=== PATIENT | female | born 1995 | race Caucasian/White ===

== ENCOUNTER 2016-11-25 04:10 | Emergency (ER) | payer SELFPAY ==
[~2016-11-25] VITALS: Ht 160 cm; Wt 117.0 kg
[~2016-11-25 04:10] MED LIST: DCS100C PO; HYDR-3454 PO; HYOS0.1217 PO; KETO10TA77 PO; TRAM50TA2 PO
--- NOTE | 2016-11-25 04:29 | ED EENT ---
History of Present Illness General Chief Complaint: Ear Problems Stated Complaint: LEFT EAR PAIN Nursing Triage Note: c/o L ear starting 1 day prior after swimming Source: patient, family (mom) Exam Limitations: no limitations History of Present Illness Time seen by provider: 04:22 Initial Comments Patient presents to ER by private conveyance with her mother with chief complaint of left ear pain after sitting in the pit yesterday. The pain started yesterday and she put some swimmer's ear drops in but this only caused more agitation. She has had no discharge, fever, nausea, malaise, fatigue, lethargy, rash. She has no history of external ear infections or otitis media. No other sick contacts. Allergies and Home Medications Allergies Coded Allergies: No Known Drug Allergies (Unverified , 01/12/12) Home Medications Docusate Sodium 100 Mg Cap, 100 MG PO BID, #60 Prescribed by: HUDSON HARRELL on 05/21/14 0916 Hydrocodone Bit/Acetaminophen 1 Each Tablet, 1 EACH PO Q4H PRN for PAIN, #30 Prescribed by: HUDSON HARRELL on 05/21/14 0916 Neomycin/Polymyxin B Sulf/Hc 10 Ml Drops.susp, 2 DROP OT QID for 10 Days, #1 Ref 0 Prescribed by: MACIE DUMONT on 11/25/16 0434 Review of Systems Constitutional: No chills, No diaphoresis, No fever, No malaise Eyes: Denies Blindness, Denies Blurred Vision Ears: See HPI, Denies Dizziness, Pain, Denies Tinnitus, Denies Bloody Discharge , Denies Clear Discharge, Denies Purulent Discharge Nose: denies clots, denies congestion Mouth: denies pain, denies swelling Throat: denies neck stiffness, denies hoarse Respiratory: No cough, No short of breath Gastrointestinal: No nausea, No vomiting Past Rlifoju-Hxfxbp-Inapob Hx Patient Social History Alcohol Use: Occasionally Uses Recreational Drug Use: No Smoking Status: Never a Smoker Recent Foreign Travel: No Contact w/Someone Who Travel: No Recent Infectious Disease Expo: No Immunizations Up To Date Tetanus Booster (TDap): Unknown Surgeries HX Surgeries: No Respiratory Hx Respiratory Disorders: No Cardiovascular Hx Cardiac Disorders: No Neurological Hx Neurological Disorders: No Reproductive System Hx Reproductive Disorders: No Sexually Transmitted Disease: No HIV/AIDS: No Genitourinary Hx Genitourinary Disorders: No Gastrointestinal Hx Gastrointestinal Disorders: No Musculoskeletal Hx Musculoskeletal Disorders: No Endocrine Hx Endocrine Disorders: No HEENT HX ENT Disorders: No Cancer Hx Cancer: No Psychosocial Hx Psychiatric Problems: No Integumentary HX Skin/Integumentary Disorder: No Blood Transfusions Hx Blood Disorders: No Adverse Reaction to a Blood Tr: No Physical Exam Vital Signs Vital Sign - Last 12Hours 11/25/16 04:23 Temp 98.2 Pulse 94 Resp 18 B/P (MAP) 139/96 Pulse Ox 98 General Appearance: WD/WN, no apparent distress Eyes: bilateral eye EOMI, bilateral eye PERRL, bilateral eye normal inspection Ears: right ear canal normal, left ear swelling, left ear tenderness, bilateral ear TM normal, bilateral ear auricle normal Nose: normal inspection, No discharge Mouth/Throat: normal mouth inspection, pharynx normal Neck: non-tender, full range of motion, supple, normal inspection Cardiovascular: normal peripheral pulses, regular rate, rhythm Respiratory: lungs clear, normal breath sounds Neurologic/Psychiatric: alert, oriented x 3 Progress/Results/Core Measures Results/Orders Vital Signs/I&O Vital Sign - Last 12Hours 11/25/16 04:23 Temp 98.2 Pulse 94 Resp 18 B/P (MAP) 139/96 Pulse Ox 98 Blood Pressure Mean: 110 Departure Impression Impression: Primary Impression: Otitis externa Qualified Codes: H60.332 - Swimmer's ear, left ear Disposition: 01 HOME, SELF-CARE Condition: Stable Departure-Patient Inst. Decision time for Depature: 04:31 Referrals: [facility] (PCP) Primary Care Physician CROW WEBBER (Family) Primary Care Physician Patient Instructions: Outer Ear Infection (DC) Add. Discharge Instructions: Apply 2 drops in your left ear 4 times daily for 10 days. It's okay to stop after your symptoms are resolved at least 2-3 days later. If you're having pain you can apply an ice pack directly over the ear followed by a warm pack. You may also use Tylenol 1000 mg every 8 hours or ibuprofen 800 mg every 8 hours. If he started having fevers, nausea and vomiting, chills or worsening symptoms he should return to the ER or to your primary care physician. He should expect some improvement in the next 2-3 days and if not gone by 7-10 days he should follow up with your primary care physician. All discharge instructions reviewed with patient and/or family. Voiced understanding. Scripts Neomycin/Polymyxin B Sulf/Hc (Sxxnzkan-Sjwznufby-Fj Ear Susp) 10 Ml Drops.susp 2 DROP OT QID for 10 Days, #1 EACH 0 Refills Prov: MACIE DUMONT 11/25/16 Copy Copies To 1: SHADI CHILDRESS DO MACIE DUMONT Nov 25, 2016 04:29
[2016-11-25] MEDS ORDERED: NEOM10DR42 OT (04:34)
[2016-11-25 04:40] VITALS: BP 139/96
== END 2016-11-25 04:39 | disposition home or self-care (01) ==
LOC: EDUNIT# 04:10 → ER 04:14
DX: H60.92 Unspecified otitis externa, left ear (principal)
CPT/HCPCS: 99282

== ENCOUNTER 2018-09-15 19:33 | Emergency (ER) | payer SELFPAY ==
[~2018-09-15] VITALS: Ht 160 cm; Wt 117.9 kg
[~2018-09-15 19:33] MED LIST changes: +NEOM10DR42 OT
--- OUTSIDE RECORDS SUMMARY | 2018-09-15 19:40 | XMS REPORT ---
Author Author Migration, Doctor Organization [facility] Address Unknown Phone Unavailable Care Team Providers Care Project Safety Manager Name Role Phone Migration, Doctor Unavailable Unavailable PROBLEMS Type Condition ICD9-CM Code MGQ00-QE Code Onset Dates Condition Status SNOMED Code Problem Mixed hyperlipidemia E78.2 Active 561163836 Problem Seasonal allergic rhinitis, unspecified trigger J30.2 Active 948012341 ALLERGIES No Information ENCOUNTERS Encounter Location Date Diagnosis [facility] [address] [address] Mar, Acute nasopharyngitis J00 ; BMI 50.0-59.9, adult Z68.43 and Sore throat J02.[address] [address] Jul, Mixed hyperlipidemia E78.[address] [address] Jul, Establishing care with new doctor, encounter for Z76.89 ; Seasonal allergic rhinitis, unspecified trigger J30.2 and BMI 50.0-59.9, adult Z68.43 [facility] [address] [address] Jun, Acute suppurative otitis media of right ear without spontaneous rupture of tympanic membrane, recurrence not specified H66.001 ; Acute nasopharyngitis J00 and BMI 50.0-59.9, adult Z68.43 [facility] [address] [address] Jan, Acute nonintractable headache, unspecified headache type R51 [facility] [address] [address] Apr, Viral gastroenteritis A08.4 [place] [id number] [address] 16 Jun, 2015 [facility] [address] [place] [address] Jun, Abnormal finding on urinalysis R82.90 and Obesity E66.9 [facility] [id number] [address] Dec, Allergic rhinitis 477.9 and Encounter for weight loss counseling V65.3 [facility] [id number] [address] Jul, [facility] [id number] [place] [address] Jul, [facility] [address] [place] [address] Apr, [facility] [id number] [place] [address] Apr, [facility] [address] [place] [address] Apr, [facility] [address] [place] [address] Apr, [facility] [address] [address] Mar, [facility] [address] [address] Mar, IMMUNIZATIONS No Known Immunizations SOCIAL HISTORY Never Assessed REASON FOR VISIT [facility] [place] PLAN OF CARE VITAL SIGNS MEDICATIONS Medication Instructions Dosage Frequency Start Date End Date Duration Status tramadol 50 mg take 1-2 tablet by Oral route every 6 hours as needed PRN MUST LAST 30 DAYS Apr, Active Bentyl 20 mg 1 tablet by Oral route every 6 hours PRN Mar, Active RESULTS No Results PROCEDURES No Known procedures INSTRUCTIONS MEDICATIONS ADMINISTERED No Known Medications MEDICAL (GENERAL) HISTORY Type Description Date Medical History Seasonal Allergys Surgical History cholecystectomy Hospitalization History Surgery(s) only
--- OUTSIDE RECORDS SUMMARY | 2018-09-15 19:40 | XMS REPORT ---
Author Author JOHN BURRIS Organization [facility] Address [address] [place] [address] Care Team Providers Care Mixer Whipped Topping Name Role Phone JOHN BURRIS Unavailable PROBLEMS Type Condition ICD9-CM Code REG61-PV Code Onset Dates Condition Status SNOMED Code Problem Seasonal allergic rhinitis, unspecified trigger J30.2 Active 459845335 Problem Mixed hyperlipidemia E78.2 Active [id number] ALLERGIES No Known Allergies ENCOUNTERS Encounter Location Date Diagnosis [facility] [id number] [place] [address] Mar, Acute nasopharyngitis J00 ; BMI 50.0-59.9, adult Z68.43 and Sore throat J02.9 [facility] [address] [address] Jul, Mixed hyperlipidemia E78.2 [facility] [id number] [place] [address] Jul, Establishing care with new doctor, encounter for Z76.89 ; Seasonal allergic rhinitis, unspecified trigger J30.2 and BMI 50.0-59.9, adult Z68.43 [facility] [id number] [place] [address] Jun, Acute suppurative otitis media of right ear without spontaneous rupture of tympanic membrane, recurrence not specified H66.001 ; Acute nasopharyngitis J00 and BMI 50.0-59.9, adult Z68.43 [facility] [id number] [place] [address] Jan, Acute nonintractable headache, unspecified headache type R51 [facility] [id number] [place] [address] Apr, Viral gastroenteritis A08.4 [facility] [address] [address] 16 Jun, 2015 [facility] [id number] [place] [address] 14 Jun, 2015 Abnormal finding on urinalysis R82.90 and Obesity E66.9 [facility] [id number] [place] [address] Dec, Allergic rhinitis 477.9 and Encounter for weight loss counseling V65.3 [place] [address] [address] Jul, [facility] [address] [address] Jul, [facility] [address] [address] Apr, [facility] [id number] [place] [address] Apr, [facility] [id number] [place] [address] Apr, [facility] [id number] [place] [address] Apr, [facility] [id number] [place] [address] Mar, [facility] [id number] [place] [address] Mar, IMMUNIZATIONS No Known Immunizations SOCIAL HISTORY Never Assessed REASON FOR VISIT Sore throat and ear pain started Tamanna Islas, REGGIE 03/09/18 PLAN OF CARE Activity Details Follow Up prn Reason: Pending Test STREP A (IN HOUSE) VITAL SIGNS Height 63 in 2018-03-21 Weight 303.4 lbs 2018-03-21 Temperature 97.2 degrees Fahrenheit 2018-03-21 Heart Rate 84 bpm 2018-03-21 Respiratory Rate 20 2018-03-21 BMI 53.74 kg/m2 2018-03-21 Blood pressure systolic 120 mmHg 2018-03-21 Blood pressure diastolic 70 mmHg 2018-03-21 MEDICATIONS Medication Instructions Dosage Frequency Start Date End Date Duration Status Ibuprofen 200 MG Orally Three times a day 1 tablet with food or milk as needed 8h Active Zyrtec Allergy 10 MG Orally Once a day 1 tablet as needed 24h Active RESULTS No Results PROCEDURES Procedure Date Ordered Result Body Site STREP A ASSAY W/OPTIC Mar 21, 2018 INSTRUCTIONS MEDICATIONS ADMINISTERED No Known Medications MEDICAL (GENERAL) HISTORY Type Description Date Medical History Seasonal Allergys Surgical History cholecystectomy Hospitalization History Surgery(s) only
--- OUTSIDE RECORDS SUMMARY | 2018-09-15 19:40 | XMS REPORT ---
Author Author Migration, Doctor Organization [facility] Address Unknown Phone Unavailable Care Team Providers Care Gyroscopic Instrument Tester Name Role Phone Migration, Doctor Unavailable Unavailable PROBLEMS Type Condition ICD9-CM Code TFI94-OP Code Onset Dates Condition Status SNOMED Code Problem Mixed hyperlipidemia E78.2 Active 659360859 Problem Seasonal allergic rhinitis, unspecified trigger J30.2 Active 466695409 ALLERGIES No Information ENCOUNTERS Encounter Location Date Diagnosis [facility] [address] [address] Mar, Acute nasopharyngitis J00 ; BMI 50.0-59.9, adult Z68.43 and Sore throat J02.[address] [address] Jul, Mixed hyperlipidemia E78.[address] [address] Jul, Establishing care with new doctor, encounter for Z76.89 ; Seasonal allergic rhinitis, unspecified trigger J30.2 and BMI 50.0-59.9, adult Z68.43 [facility] IN [address] [address] Jun, Acute suppurative otitis media of right ear without spontaneous rupture of tympanic membrane, recurrence not specified H66.001 ; Acute nasopharyngitis J00 and BMI 50.0-59.9, adult Z68.43 [facility] [address] [address] Jan, Acute nonintractable headache, unspecified headache type R51 [facility] [address] [address] Apr, Viral gastroenteritis A08.4 [place] [id number] [address] 16 Jun, 2015 [facility] [address] [place] [address] 14 Jun, 2015 Abnormal finding on urinalysis R82.90 and Obesity E66.9 [facility] [id number] [place] [address] 24 Dec, 2014 Allergic rhinitis 477.9 and Encounter for weight loss counseling V65.3 [facility] [id number] [place] [address] Jul, [facility] [id number] [place] [address] Jul, [facility] [id number] [place] [address] Apr, [facility] [id number] [place] [address] Apr, [facility] [address] [place] [address] Apr, [facility] [id number] [place] [address] Apr, [facility] [address] [address] Mar, [facility] [address] [place] [address] Mar, IMMUNIZATIONS No Known Immunizations SOCIAL HISTORY Never Assessed REASON FOR VISIT [facility] [place] CARE VITAL SIGNS MEDICATIONS No Known Medications RESULTS No Results PROCEDURES No Known procedures INSTRUCTIONS MEDICATIONS ADMINISTERED No Known Medications MEDICAL (GENERAL) HISTORY Type Description Date Medical History Seasonal Allergys Surgical History cholecystectomy Hospitalization History Surgery(s) only
--- OUTSIDE RECORDS SUMMARY | 2018-09-15 19:41 | XMS REPORT ---
Author Author MARGO PIERRE Organization [facility] Address [address] [place] [address] Care Team Providers Care Concrete Stone Finisher Name Role Phone MARGO PIERRE Unavailable PROBLEMS Type Condition ICD9-CM Code OOE83-OK Code Onset Dates Condition Status SNOMED Code Problem Seasonal allergic rhinitis, unspecified trigger J30.2 Active 320214168 Problem Mixed hyperlipidemia E78.2 Active 727028541 ALLERGIES No Known Allergies ENCOUNTERS Encounter Location Date Diagnosis [place] [address] [address] Jul, Mixed hyperlipidemia E78.2 [facility] [address] [address] Jul, Establishing care with new doctor, encounter for Z76.89 ; Seasonal allergic rhinitis, unspecified trigger J30.2 and BMI 50.0-59.9, adult Z68.43 [facility] [id number] [place] [address] Jun, Acute suppurative otitis media of right ear without spontaneous rupture of tympanic membrane, recurrence not specified H66.001 ; Acute nasopharyngitis J00 and BMI 50.0-59.9, adult Z68.43 [facility] [id number] [place] [address] Jan, Acute nonintractable headache, unspecified headache type R51 [facility] [place] [address] [address] Apr, Viral gastroenteritis A08.4 [facility] [id number] [place] [address] Jun, [facility] [id number] [address] 14 Jun, 2015 Abnormal finding on urinalysis R82.90 and Obesity E66.9 [facility] [id number] [place] [address] 24 Dec, 2014 Allergic rhinitis 477.9 and Encounter for weight loss counseling V65.3 [place] [id number] [place] [address] 14 Jul, 2014 [facility] [id number] [place] [address] Jul, [place] [id number] [place] [phone] Apr, [facility] [id number] [place] [address] Apr, [place] [id number] [place] [address] Apr, [facility] [id number] [place] [address] Apr, [place] [id number] [place] [phone] Mar, [facility] [id number] [place] [phone] Mar, IMMUNIZATIONS No Known Immunizations SOCIAL HISTORY Never Assessed REASON FOR VISIT Establish Care--[facility] PLAN OF CARE Activity Details Follow Up 6 Months, prn Reason:well woman VITAL SIGNS Height 63 in 2017-07-20 Weight 304 lbs 2017-07-20 Temperature 97.8 degrees Fahrenheit 2017-07-20 Heart Rate 80 bpm 2017-07-20 Respiratory Rate 20 2017-07-20 BMI 53.85 kg/m2 2017-07-20 Blood pressure systolic 122 mmHg 2017-07-20 Blood pressure diastolic 74 mmHg 2017-07-20 MEDICATIONS Medication Instructions Dosage Frequency Start Date End Date Duration Status Zyrtec Allergy 10 MG Orally Once a day 1 tablet as needed 24h Active RESULTS No Results PROCEDURES Procedure Date Ordered Result Body Site Hemoglobin Test Send Out 0 dollar July 20, 2017 COMPREHEN METABOLIC PANEL July 20, 2017 VENIPUNCT, ROUTINE* July 20, 2017 ASSAY THYROID STIM HORMONE July 20, 2017 COMPLETE CBC W/AUTO DIFF WBC July 20, 2017 LIPID PANEL July 20, 2017 INSTRUCTIONS MEDICATIONS ADMINISTERED No Known Medications MEDICAL (GENERAL) HISTORY Type Description Date Medical History Seasonal Allergys Surgical History cholecystectomy Hospitalization History Surgery(s) only
--- OUTSIDE RECORDS SUMMARY | 2018-09-15 19:41 | XMS REPORT ---
Author Author MARGO PIERRE Organization [facility] Address [address] [place] [address] Care Team Providers Care Physician Office Specialist Name Role Phone MARGO PIERRE Unavailable PROBLEMS Type Condition ICD9-CM Code NAV24-WG Code Onset Dates Condition Status SNOMED Code Problem Seasonal allergic rhinitis, unspecified trigger J30.2 Active 561510140 Problem Mixed hyperlipidemia E78.2 Active 307003176 ALLERGIES No Information ENCOUNTERS Encounter Location Date Diagnosis [facility] [id number] [place] [address] Jul, Mixed hyperlipidemia E78.2 [facility] [address] [address] Jul, Establishing care with new doctor, encounter for Z76.89 ; Seasonal allergic rhinitis, unspecified trigger J30.2 and BMI 50.0-59.9, adult Z68.43 [facility] [id number] [place] [address] Jun, Acute suppurative otitis media of right ear without spontaneous rupture of tympanic membrane, recurrence not specified H66.001 ; Acute nasopharyngitis J00 and BMI 50.0-59.9, adult Z68.43 [facility] [id number] [place] [address] Jan, Acute nonintractable headache, unspecified headache type R51 [facility] [id number] [place] [address] Apr, Viral gastroenteritis A08.4 [facility] [id number] [place] [address] Jun, [facility] [id number] [address] 14 Jun, 2015 Abnormal finding on urinalysis R82.90 and Obesity E66.9 [facility] [id number] [place] [address] 24 Dec, 2014 Allergic rhinitis 477.9 and Encounter for weight loss counseling V65.3 [facility] [id number] [place] [address] Jul, [facility] [id number] [place] [address] Jul, [facility] [id number] [place] [address] Apr, [facility] [id number] [place] [address] Apr, [facility] [id number] [place] [address] Apr, [facility] [id number] [place] [address] Apr, [facility] [id number] [place] [phone] Mar, [facility] [address] [place] [phone] Mar, IMMUNIZATIONS No Known Immunizations SOCIAL HISTORY Never Assessed REASON FOR VISIT deferred lab placed PLAN OF CARE VITAL SIGNS MEDICATIONS Unknown Medications RESULTS No Results PROCEDURES No Known procedures INSTRUCTIONS MEDICATIONS ADMINISTERED No Known Medications MEDICAL (GENERAL) HISTORY Type Description Date Medical History Seasonal Allergys Surgical History cholecystectomy Hospitalization History Surgery(s) only
--- OUTSIDE RECORDS SUMMARY | 2018-09-15 19:41 | XMS REPORT ---
Author Author JOHN BURRIS [facility] WALK IN [facility] Address [address] [place] [address] Care Team Providers Care Cigar Inspector Name Role Phone JOHN BURRIS Unavailable PROBLEMS Type Condition ICD9-CM Code UBL53-QR Code Onset Dates Condition Status SNOMED Code Problem Seasonal allergic rhinitis, unspecified trigger J30.2 Active 042502020 Problem Mixed hyperlipidemia E78.2 Active 604475462 ALLERGIES No Known Allergies ENCOUNTERS Encounter Location Date Diagnosis [place] [id number] [phone] Jul, Mixed hyperlipidemia E78.2 [facility] [address] [address] Jul, Establishing care with new doctor, encounter for Z76.89 ; Seasonal allergic rhinitis, unspecified trigger J30.2 and BMI 50.0-59.9, adult Z68.43 [facility] WALK IN [facility] [address] [place] [id number] [place] [phone] Jun, Acute suppurative otitis media of right ear without spontaneous rupture of tympanic membrane, recurrence not specified H66.001 ; Acute nasopharyngitis J00 and BMI 50.0-59.9, adult Z68.43 [facility] [address] [place] [place] [id number] [place] [phone] Jan, Acute nonintractable headache, unspecified headache type R51 [facility] IN [facility] [address] [address] Apr, Viral gastroenteritis A08.4 [place] [address] [address] Jun, [place] [id number] [address] 14 Jun, 2015 Abnormal finding on urinalysis R82.90 and Obesity E66.9 [facility] [address] [place] [id number] [place] [phone] Dec, Allergic rhinitis 477.9 and Encounter for weight loss counseling V65.3 [place] [address] [place] [id number] [place] [phone] Jul, [facility] [address] [place] [id number] [place] [phone] Jul, [place] [address] [place] [id number] [place] [phone] Apr, [facility] [address] [place] [id number] [place] [phone] Apr, [place] [address] [place] [id number] [place] [phone] Apr, [facility] [address] [place] [id number] [place] [phone] Apr, [facility] [address] [place] [id number] [place] [phone] Mar, [place] [address] [place] [id number] [place] [phone] Mar, IMMUNIZATIONS No Known Immunizations SOCIAL HISTORY Never Assessed REASON FOR VISIT sore throat, bilateral earache, stuffy nose, cough. been sick for 2 weeks. archie pinto PLAN OF CARE Activity Details Follow Up prn Reason: VITAL SIGNS Height 63 in 2017-07-13 Weight 301.6 lbs 2017-07-13 Temperature 98.3 degrees Fahrenheit 2017-07-13 Heart Rate 84 bpm 2017-07-13 Respiratory Rate 20 2017-07-13 BMI 53.42 kg/m2 2017-07-13 Blood pressure systolic 130 mmHg 2017-07-13 Blood pressure diastolic 76 mmHg 2017-07-13 MEDICATIONS Medication Instructions Dosage Frequency Start Date End Date Duration Status Ondansetron 4 MG Orally every 8 hrs PRN 1 tablet on the tongue and allow to dissolve Apr, 10 days Not-Taking Amoxicillin 875 MG Orally every 12 hrs 1 tablet 12h Jun, Jul, 10 day(s) Active Zyrtec Allergy 10 MG Orally Once a day 1 tablet as needed 24h Active RESULTS No Results PROCEDURES No Known procedures INSTRUCTIONS MEDICATIONS ADMINISTERED No Known Medications MEDICAL (GENERAL) HISTORY Type Description Date Medical History Seasonal Allergys Surgical History cholecystectomy Hospitalization History Surgery(s) only
--- OUTSIDE RECORDS SUMMARY | 2018-09-15 19:41 | XMS REPORT ---
Author Author BENY MCHUGH Organization [facility] Address [address] [place] [address] Care Team Providers Care Solar Sales Assessor Name Role Phone BENY MCHUGH Unavailable PROBLEMS Type Condition ICD9-CM Code YAU14-VD Code Onset Dates Condition Status SNOMED Code Problem Obesity E66.9 Active 642817035 Problem Abnormal finding on urinalysis R82.90 Active 785307033 ALLERGIES Substance Reaction Event Type Date Status N.K.D.A. Unknown Non Drug Allergy Apr, Unknown SOCIAL HISTORY No smoking Hx information available PLAN OF CARE Activity Details Follow Up prn Reason: VITAL SIGNS Height 63 in 2016-05-08 Weight 295.8 lbs 2016-05-08 Temperature 97.3 degrees Fahrenheit 2016-05-08 Heart Rate 82 bpm 2016-05-08 Respiratory Rate 18 2016-05-08 BMI 52.39 kg/m2 2016-05-08 Blood pressure systolic 126 mmHg 2016-05-08 Blood pressure diastolic 70 mmHg 2016-05-08 MEDICATIONS Medication Instructions Dosage Frequency Start Date End Date Duration Status Zyrtec Allergy 10 MG Orally Once a day 1 tablet as needed 24h Active Ondansetron 4 MG Orally every 8 hrs PRN 1 tablet on the tongue and allow to dissolve Apr, 10 days Active RESULTS No Results PROCEDURES Procedure Date Ordered Related Diagnosis Body Site Office Visit, Est Pt., Level 3 May 08, 2016 IMMUNIZATIONS No Known Immunizations
--- NOTE | 2018-09-15 19:52 | ED Integumentary General ---
General Chief Complaint: Head/Cervical Problems Stated Complaint: LUMPS ON NECK Source: patient Exam Limitations: no limitations History of Present Illness Date Seen by Provider: Sep 15, 2018 Time Seen by Provider: 19:51 Initial Comments 23-year-old female who presents to the emergency room with complaints of 2 lumps on her right side of her neck. She believes that she was bit by a spider 2 days ago. She has mild erythema and bites to her right side of her neck. Denies fevers. Associated Symptoms: swelling/mass/lumps Allergies and Home Medications Allergies Coded Allergies: No Known Drug Allergies (Unverified , 01/12/12) Home Medications Docusate Sodium 100 Mg Cap, 100 MG PO BID Prescribed by: HUDSON HARRELL on 05/21/14 0916 Hydrocodone Bit/Acetaminophen 1 Each Tablet, 1 EACH PO Q4H PRN for PAIN Prescribed by: HUDSON HARRELL on 05/21/14 0916 Neomycin/Polymyxin B Sulf/Hc 10 Ml Drops.susp, 2 DROP OT QID Prescribed by: MACIE DUMONT on 11/25/16 0434 Sulfamethoxazole/Trimethoprim 1 Each Tablet, 1 EACH PO BID Prescribed by: BRAULIO BENJAMIN on 09/15/181999 Patient Home Medication List Home Medication List Reviewed: Yes Review of Systems Review of Systems Constitutional: see HPI; No chills, No fever Skin: see HPI, other (insect bites to the right side of her neck) All Other Systems Reviewed Negative Unless Noted: Yes Past Oytxvfu-Qmlanh-Njiyyi Hx Past Med/Social Hx: Reviewed Nursing Past Med/Soc Hx Patient Social History Alcohol Beverage of Choice: Beer Recent Foreign Travel: No Contact w/Someone Who Travel: No Immunizations Up To Date Tetanus Booster (TDap): Unknown Past Medical History Surgeries: No Respiratory: No Cardiac: No Neurological: No Reproductive Disorders: No Sexually Transmitted Disease: No HIV/AIDS: No Genitourinary: No Gastrointestinal: No Musculoskeletal: No Endocrine: No Cancer: No Psychosocial: No Integumentary: No Blood Disorders: No Adverse Reaction/Blood Tranf: No Family Medical History Reviewed Nursing Family Hx Physical Exam Vital Signs Vital Signs - First Documented 09/15/18 19:40 Temp 98.6 Pulse 80 Resp 16 B/P (MAP) 123/85 (98) Pulse Ox 97 O2 Delivery Room Air Capillary Refill : General Appearance: WD/WN, no apparent distress Cardiovascular: normal peripheral pulses, regular rate, rhythm, no edema, no gallop, no JVD, no murmur Respiratory: chest non-tender, lungs clear, normal breath sounds, no respiratory distress, no accessory muscle use Neurologic/Psychiatric: alert, normal mood/affect, oriented x 3 Skin: normal color, warm/dry Skin Problem Location: neck (right side) Skin Problem Character: erythema, thickening Progress/Results/Core Measures Results/Orders My Orders Orders - BRAULIO BENJAMIN Sulfamethoxazole/Trimet Ds Tab (Bactrim (09/15/18 20:00) Medications Given in ED Vital Signs/I&O 09/15/18 09/15/18 19:40 20:00 Temp 98.6 Pulse 80 80 Resp 16 16 B/P (MAP) 123/85 (98) 123/85 (98) Pulse Ox 97 97 O2 Delivery Room Air Room Air Departure Impression Primary Impression: Infected insect bite of neck Disposition: 01 HOME, SELF-CARE Condition: Stable/Unchanged Departure-Patient Inst. Decision time for Depature: 19:52 Referrals: NO,LOCAL PHYSICIAN (PCP) Primary Care Physician CROW WEBBER (Family) Primary Care Physician Patient Instructions: Insect Bites and Stings (DC) Add. Discharge Instructions: Take medication as directed. Follow-up with your primary care provider within 1 week for recheck. Return back to the emergency room for worsening symptoms or concerns as needed. All discharge instructions reviewed with patient and/or family. Voiced understanding. Scripts Sulfamethoxazole/Trimethoprim (Bactrim Ds Tablet) 1 Each Tablet 1 EACH PO BID for 7 Days, #14 TAB Prov: BRAULIO BENJAMIN 09/15/18 BRAULIO BENJAMIN Sep 15, 2018 19:52
[2018-09-15 20:00] VITALS: BP 123/85
[2018-09-15] MEDS ORDERED: TRIM/SULFAMETH 160/800 (SEPTRA DS) TAB PO ONE (20:00)
[2018-09-15] MEDS ORDERED: SULF1TAB35 PO (20:00)
== END 2018-09-15 20:06 | disposition home or self-care (01) ==
LOC: EDUNIT# 19:33 → ER 19:36
DX: S10.96XA Insect bite of unspecified part of neck, initial encounter (principal); L08.9 Local infection of the skin and subcutaneous tissue, unspecified; W57.XXXA Bitten or stung by nonvenomous insect and other nonvenomous arthropods, initial encounter
CPT/HCPCS: 99283